=== PATIENT | male | born 1970 | race Two or more races ===

== ENCOUNTER 2023-05-28 12:35 | Emergency (ER) | payer OTHER ==
[~2023-05-28] VITALS: Ht 170.2 cm; Wt 74.8 kg
[2023-05-28] MEDS ORDERED: PROPOFOL 20 ML IV ONE (12:56)
[2023-05-28] MEDS ORDERED: PROPOFOL 200 MG/20 ML VIAL IV ONE (13:00)
[2023-05-28 15:20] VITALS: BP 133/73; TEMP 98.1; O2SAT 100
[2023-05-28] MEDS ORDERED: HYDROMORPHONE 1 MG/1 ML DISP.SYRIN ONE (16:42)
[2023-05-28] MEDS ORDERED: HYDROMORPHONE 1 MG/1 ML DISP.SYRIN IV ONE (17:00)
== END 2023-05-28 19:17 | disposition hospice, inpatient (51) ==
LOC: ER 12:38
DX: S82.141A Displaced bicondylar fracture of right tibia, initial encounter for closed fracture (principal); S82.852A Displaced trimalleolar fracture of left lower leg, initial encounter for closed fracture; Z60.2 Problems related to living alone; Y93.39 Activity, other involving climbing, rappelling and jumping off; Y93.89 Activity, other specified; Y92.89 Other specified places as the place of occurrence of the external cause; Y99.8 Other external cause status
CPT/HCPCS: 27818; 73564; 73600; 73610; 96374; 99152; 99285; J1170; J2704; G0500